=== PATIENT | male | born 1970 | race Caucasian/White ===

== ENCOUNTER 2018-07-18 00:05 | Inpatient (IN) | payer OTHER ==
[2018-07-18] MEDS ORDERED: morphine 2 MG INJ IV (01:30)
[2018-07-18] MEDS ORDERED: NITROGLYCERIN (SL) 0.4 MG TAB SL ×2 (01:30→07:00)
[2018-07-18 06:14] LABS: ADD MAN DIFF? NO
[2018-07-18 06:31] LABS: WHITE BLOOD COUNT 6.3 10^3/ul (4.8-10.8)
[2018-07-18 06:31] LABS: BASOPHILS % 0.5 % (0.0-2.0); EOSINOPHILS # 0.1 10^3/ul (0.0-0.5); EOSINOPHILS % 1.1 % (0.0-7.0); HEMATOCRIT 43.2 % (42.0-52.0); HEMOGLOBIN 14.6 g/dl (14.0-18.0); LYMPHOCYTES # 1.7 10^3/ul (0.8-2.9); LYMPHOCYTES % 26.9 % (15.0-51.0); MEAN CORPUSCULAR HEMOGLOBIN 28.8 pg (29.0-33.0); MEAN CORPUSCULAR HGB CONC 33.8 g/dl (32.0-37.0); MEAN CORPUSCULAR VOLUME 85.2 fl (82.0-101.0); MEAN PLATELET VOLUME 10.2 fl (7.4-10.4); MONOCYTE # 0.7 10^3/ul (0.3-0.9); MONOCYTES % 11.4 % (0.0-11.0); NEUTROPHIL # 3.7 10^3/ul (1.6-7.5); NEUTROPHILS % 59.5 % (39.0-77.0); PLATELET COUNT 200 10^3/UL (140-415); RED BLOOD COUNT 5.07 10^6/ul (4.70-6.10); RED CELL DISTRIBUTION WIDTH 12.5 % (11.5-14.5)
[2018-07-18 06:39] LABS: HEMOGLOBIN A1C 5.6 % (0-5.9)
[2018-07-18 07:00] LABS: CK-MB 0.25 ng/ml (0.0-2.4); TROPONIN-I < 0.012 ng/ml (0.000-0.120)
[2018-07-18] MEDS ORDERED: ACETAMINOPHEN 325 MG TAB PO (07:00)
[2018-07-18] MEDS ORDERED: ONDANSETRON 4 MG INJ IV (07:00)
[2018-07-18] MEDS ORDERED: NACL 0.9% 3 ML SYG IV (07:00)
[2018-07-18 07:02] LABS: ALANINE AMINOTRANSFERASE 24 IU/L (13-69); ALBUMIN 3.9 g/dl (3.3-4.9); ALBUMIN/GLOBULIN RATIO 1.21; ALKALINE PHOSPHATASE 82 IU/L (42-121); ANION GAP 15 (8-16); ASPARTATE AMINO TRANSFERASE 20 IU/L (15-46); BILIRUBIN,INDIRECT 0.8 mg/dl (0-1.1); BILIRUBIN,TOTAL 0.8 mg/dl (0.2-1.3); BLOOD UREA NITROGEN 14 mg/dl (7-20); CARBON DIOXIDE 28 mmol/L (21-31); CHLORIDE 104 mmol/L (97-110); CHOL/HDL RATIO 4.8 RATIO; CHOLESTEROL 203 mg/dl (100-200); CK INDEX 0.4; CREATINE KINASE 57 IU/L (23-200); CREATININE 0.74 mg/dl (0.61-1.24); GLUCOSE 97 mg/dl (70-220); HDL CHOLESTEROL 42 mg/dl (28-71); LDL CHOLESTEROL,CALCULATED 127 mg/dl; POTASSIUM 3.8 mmol/L (3.5-5.1); SODIUM 143 mmol/L (135-144); TOTAL PROTEIN 7.1 g/dl (6.1-8.1); TRIGLYCERIDES 169 mg/dl (0-149)
[2018-07-18] MEDS: ENOXAPARIN 40 MG/0.4 ML SYG SC (08:47)
[2018-07-18] MEDS: METOPROLOL (XL) 25 MG TAB PO (11:25)
[2018-07-18 12:56] LABS: CREATINE KINASE 65 IU/L (23-200)
[2018-07-18 13:09] LABS: CK INDEX 0.3; CK-MB < 0.22 ng/ml (0.0-2.4); TROPONIN-I < 0.012 ng/ml (0.000-0.120)
[2018-07-18] MEDS: ATORVASTATIN 20 MG TAB PO (20:50)
[2018-07-19 06:55] LABS: ADD MAN DIFF? NO
[2018-07-19 07:02] LABS: BASOPHILS % 0.6 % (0.0-2.0); EOSINOPHILS # 0.1 10^3/ul (0.0-0.5); EOSINOPHILS % 1.7 % (0.0-7.0); HEMATOCRIT 46.5 % (42.0-52.0); HEMOGLOBIN 15.5 g/dl (14.0-18.0); LYMPHOCYTES # 1.4 10^3/ul (0.8-2.9); LYMPHOCYTES % 25.4 % (15.0-51.0); MEAN CORPUSCULAR HEMOGLOBIN 28.9 pg (29.0-33.0); MEAN CORPUSCULAR HGB CONC 33.3 g/dl (32.0-37.0); MEAN CORPUSCULAR VOLUME 86.6 fl (82.0-101.0); MEAN PLATELET VOLUME 10.1 fl (7.4-10.4); MONOCYTE # 0.6 10^3/ul (0.3-0.9); MONOCYTES % 11.9 % (0.0-11.0); NEUTROPHIL # 3.2 10^3/ul (1.6-7.5); NEUTROPHILS % 59.5 % (39.0-77.0); PLATELET COUNT 201 10^3/UL (140-415); RED BLOOD COUNT 5.37 10^6/ul (4.70-6.10); RED CELL DISTRIBUTION WIDTH 12.6 % (11.5-14.5)
[2018-07-19 07:02] LABS: WHITE BLOOD COUNT 5.3 10^3/ul (4.8-10.8)
[2018-07-19 07:39] LABS: ALANINE AMINOTRANSFERASE 27 IU/L (13-69); ALBUMIN 3.9 g/dl (3.3-4.9); ALBUMIN/GLOBULIN RATIO 1.18; ALKALINE PHOSPHATASE 81 IU/L (42-121); ANION GAP 16 (8-16); ASPARTATE AMINO TRANSFERASE 25 IU/L (15-46); BILIRUBIN,INDIRECT 0.7 mg/dl (0-1.1); BILIRUBIN,TOTAL 0.7 mg/dl (0.2-1.3); BLOOD UREA NITROGEN 14 mg/dl (7-20); CALCIUM 9.2 mg/dl (8.4-10.2); CARBON DIOXIDE 29 mmol/L (21-31); CHLORIDE 105 mmol/L (97-110); CREATININE 0.86 mg/dl (0.61-1.24); GLUCOSE 106 mg/dl (70-220); POTASSIUM 4.5 mmol/L (3.5-5.1); SODIUM 145 mmol/L (135-144); TOTAL PROTEIN 7.2 g/dl (6.1-8.1)
[2018-07-19 07:56] LABS: HEMOGLOBIN A1C 5.8 % (0-5.9)
[2018-07-19] MEDS: METOPROLOL (XL) 25 MG TAB PO (08:54)
[2018-07-19] MEDS: ENOXAPARIN 40 MG/0.4 ML SYG SC (08:58)
== END 2018-07-19 17:05 | disposition home or self-care (01) | DRG 313 ==
LOC: TEL 00:05
DX: R07.9 Chest pain, unspecified (principal); M25.511 Pain in right shoulder; I10 Essential (primary) hypertension
CPT/HCPCS: 71046; 80053; 80061; 82550; 82553; 83036; 84443; 84484; 85025; 93005; 93306